=== PATIENT | male | born 1990 | race Caucasian/White ===

== ENCOUNTER 2016-09-02 09:43 | Inpatient (IN) | payer OTHER ==
[~2016-09-02] VITALS: Ht 175.3 cm; Wt 75.7 kg
--- NOTE | ~2016-09-02 | TXPLANREV ---
"PATIENT: JACKI MARSH | | [facility] UNIT #: [id number] | [address] AGE/SEX: 26 M : 89 | [address] | [place] [phone] ADMIT/REG DATE: 09/02/16 | ROOM: [facility] LOC: ADTC | ADTC | Treatment Plan/Staffing Review Date: 09/23/16 Treatment plan was reviewed and determined appropriate as written: Yes Treatment plan was reviewed and the following changes/addition/deletions are necessary: Client was assigned feelings letters to complete on his kids. Client was also assigned a Recovery Maintanence packet. Discharge plans were reviewed and determined appropriate as previously documented: see below Discharge plans were reviewed and determined to be as follows: Client will be going to a 1/2 [address] house or 3/4 house. Other pertinent issues discussed during this staffing review include: None Staff Present: Reyna Martínez Jann D PRIMARY COUNSELOR: Christina Nelson Client Signature Counselor Signature Date Time "
--- NOTE | ~2016-09-02 | CLPRLASSUM ---
PATIENT: JACKI MARSH | | [facility] UNIT #: [id number] | [address] AGE/SEX: 26 M : 89 | [address] | [place] [address] ADMIT/REG DATE: 09/02/16 | ROOM: [facility] LOC: ADTC | ADTC | Client Problem List/Assessment Summary Date: 09/09/16 Problems identified by the client: drug use, upbringing, friends, Problems identified by significant others: drug use Client's Strengths: beti rowe Problem List: Code: T Client needs to become familiar with basics of recovery as he is new to treatment and Twelve Step Program. Code: T Client needs to address criminal attitudes and beliefs which leads to substance abuse and crimes. Code: T Client does not "reach-out to others for help" and instead resumes using drugs. Code: T Client needs to identify relapse warning signs and develop a plan to deal with them as they arise. Code Pop: T: to be addressed during course of treatment O: problem noted, expected to resolve itself with abstinence--specific tx plan not required R: problem noted, will be referred upon discharge PRIMARY COUNSELOR: Christina Nelson
--- NOTE | ~2016-09-02 | RESCARESUM ---
"PATIENT: JACKI MARSH | | [facility] UNIT #: [id number] | [address] AGE/SEX: 26 M : 89 | [address] | [place] [address] ADMIT/REG DATE: 09/02/16 | ROOM: [facility] LOC: ADTC | ADT | Summary of Residential Care Primary [facility]or[facility] Date of Admission: 09/02/16 Date of Discharge: 09/30/16 Referral Source: probation Primary Care Provider Prior to Admission: None Admitting Diagnosis: F15.20 Stimulant Use Disorder, severe; F12.20 Cannabis Use Disorder, severe; F11.20 Opiod Use Disorder, severe; F10.20 Alcohol Use Disorder, mild; F17.20 Tobacco Use Disorder, severe; High risk for blood-borne pathogens due to long-term IV use per Dr. Leonard Rao. Discharge Diagnosis: Same as above Goals Achieved: Client verbalized understanding of the severity of his powerlessness and unmanagability related to his substance use. He practiced identifying and appropriately expressing his feelings. Client completed his Step One, Deny Baby, Shame Faced, and Recovery Maintanence packets. Client began to work on relapse triggers and prevention plan. Continued Obstacles to Sobriety/Relapse Issues: Client's whole family is activly using or dealing. Family Issues Addressed: Client completed Family Education. Y Individual Therapy Y Group Therapy Y Educational Series on Substance Abuse N Parents/Significant Others Attended Family Program N Acute Medical Problems During the Course of Treatment N Transferred to Hospital During the Course of Treatment Y Accepting of Substance Abuse Problem N Non-accepting of Substance Abuse Problem N Required Psychological or Psychiatric Consultation During the Course of Treatment Completed AA Step # 1 During This Level of Care Significant Incidences During Treatment: None Reason For Discharge: Y Completed Residential TX Goals and Ready For Next Level of Care N Left Tx Against Medical Advice/Treatment Goals Not Complete N Completed Residential Tx Goals But Refusing Continuing Care Recommendations N Discharged Due to Noncompliance/Treatment Goals not Completed N Discharged Earlier Than Planned Due to: PATIENT: JACKI MARSH | | [facility] UNIT #: [id number] | [address] AGE/SEX: 26 M : 89 | [address] | [place] [address] ADMIT/REG DATE: 09/02/16 | ROOM: [facility] LOC: ADTC | ADTC | Summary of Residential Care Continuing Care Plan/Recommendations: N Intensive Partial Care Y Sponsor N Partial Care Y AA Meetings/NA Meetings N Outpatient N Co-dependency Services N Therapeutic Community Y [address] House N [address] Way House N Mental Health Therapy N Marriage Counseling N Other Specific Continuing Care Plan: It is recommended that client go directly to the [facility], follow all rules and regulations, seek full-time work, get and call sponsor on a regular basis, attend 3-5 NA/AA meetings per week, and work a strong program of revcovery. PRIMARY COUNSELOR: Christina Nelson"
--- NOTE | ~2016-09-02 | TXPLANREV ---
"PATIENT: JACKI MARSH | | [facility] UNIT #: [id number] | [address] AGE/SEX: 26 M : 89 | [address] | [place] [phone] ADMIT/REG DATE: 09/02/16 | ROOM: [facility] LOC: ADTC | ADTC | Treatment Plan/Staffing Review Date: 09/16/16 Treatment plan was reviewed and determined appropriate as written: Client finished his Step 1 and is to work on his feelings letters. Treatment plan was reviewed and the following changes/addition/deletions are necessary: Client was given Tai Thinkin and Deny Baby to read. Discharge plans were reviewed and determined appropriate as previously documented: see janessa Discharge plans were reviewed and determined to be as follows: Client would like to go back home but it is recommended that he go to a half way house. Clients drug master deputy sheriff court security is in agreement with this. Other pertinent issues discussed during this staffing review include: none Staff Present: Reyna Martínez Lori C PRIMARY COUNSELOR: Christina Nelson Client Signature Counselor Signature Date Time "
--- NOTE | ~2016-09-02 | INDIVTXPL2 ---
"PATIENT: JACKI MARSH | | [facility] UNIT #: [id number] | [address] AGE/SEX: 26 M : 89 | [address] | [place] [address] ADMIT/REG DATE: 09/02/16 | ROOM: [facility] LOC: ADTC | ADTC | Individualized Treatment Plan DATE: 09/09/16 Problem Statement/Issue Identified: Client needs to become familiar with the basics of recovery as he is new to treatment and the Twelve Step Program. Goal: Client will learn how to identify negative consequences of his addcition, attend AA/NA meetings and meet men in recovery. Objectives/Activities to achieve goal: 1. Client is to complete the How to Get Started packet, which will help him take a look at how his addiction has progressed in his life and share with his counselor and selected pages in group. Due Date: 09/18/16 Complete: Incomplete: 2. Client is to complete Step 1, learning how he has compromised his values and standards and share with his counselor and selected pages in group. Due Date: 09/18/16 Complete: Incomplete: 3. Client is to attend AA/NA meetings, ask for and get at least 5 names and numbers of men in recovery so he can begin to build a support system and possible sponsor and share with his counselor. Due Date: Complete: Incomplete: Client Signature Date Counselor Signaure: Date Outcome/Measurement of Progress Towards Goal: Counselor Signature: Date "
--- NOTE | 2016-09-02 11:12 | NUR ---
Tech notes: Client is working on Getting started. Missed meditation over slept.
--- NOTE | 2016-09-02 11:12 | NUR ---
Adrian notes: Client is working on Tai Mortensenin and mtg with edith
--- NOTE | 2016-09-02 13:14 | NUR ---
ADMISSION NOTE Rights/Responsibilities: Copy given and explained to client. Signed and accepted by client. Client oriented to physical lay out of the ADTC unit, given Big Book and admission packet. A Omer was assigned. Edison Client is a 26yr old single male. Referred by probation. Brought to tx by friend from [place], [place] where he lives. DOC, Meth, last used 07/09/16, 2 grams daily. No allergies, No meds. Family participation sister. Was searched no contraband found. Initial paperwork given and guidelines gone over. Doctor was notified.
--- NOTE | 2016-09-02 17:25 | NUR ---
SPIRITUAL EDUCATION 1 HR. We oriented newcomers to spirituality group, and todays activities were putting on presentations from parts of [employer] book.
--- NOTE | 2016-09-02 18:29 | NUR ---
Individual Aliya, 1.0 hours, Client was oriented to how therapy works, how family education works and family participation, releases signed, explained that he cannot use the phone this first weekend but can have visits and gave him visiting hours, explained significant event forms, room checks and reviewed his initial treatment plan.
--- NOTE | 2016-09-02 22:39 | NUR ---
tech note: Client played Pictionary for recreation & attended onsite NA meeting.Client was checked into his room & seen by the DR. Client gave his first intro. SE: coming to treatment.
--- NOTE | 2016-09-02 23:27 | NUR ---
Eduction: 1 Hour. Client attended "Disease Concept" lecture.
--- NOTE | 2016-09-03 05:35 | NUR ---
tech note: Client was motionless in no distress at all bed checks.
--- NOTE | 2016-09-03 05:35 | NUR ---
tech note: Client was motionless in no distress at all bed checks.
--- NOTE | 2016-09-03 12:06 | NUR ---
Group 1.5 Hr Ratio 1:11/Topics today were orientating two new members to group rules and goals. A feelings letter and dealing with anger. Client was orientated to group rules and he shared how he struggles to deal with anger in a positive manner.
--- NOTE | 2016-09-03 15:32 | NUR ---
Education 1 Hour: Client heard a panel of speakers from the local recovery community, who shared their experience, strength and hope.
--- NOTE | 2016-09-03 16:00 | NUR ---
Step education/1 hr/ Focus was on step one. Each person completed a worksheet on this topic and then chose 4 from sheet to share out loud. This person participated.
--- NOTE | 2016-09-03 18:31 | NUR ---
Family contact: Clients roommate was called and a message left so she can be part of family education. Clients sister was also called and a message left to call back so she can be oriented to family education.
--- NOTE | 2016-09-03 18:32 | NUR ---
Trauma Note: Trauma will be addressed during individual therapy sessions.
--- NOTE | 2016-09-03 23:20 | NUR ---
TECH NOTE: Client redecorated the building for [employer], participated in Guided Meditation and attended on-site AA meeting. SE: break fast
--- NOTE | 2016-09-04 04:33 | NUR ---
Bed Note: Clt lay motionless in bed with eyes closed showing no distress at all bed checks.
--- NOTE | 2016-09-04 13:00 | NUR ---
PEER REVIEWS, 1 HR: Clt participated in peer review process and was able to give open and honest feedback to those receiving a review.
--- NOTE | 2016-09-04 15:44 | NUR ---
Tech Note: Client watched the second half of Pleasure [employer] for education and is working on Getting Started.
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
--- NOTE | 2016-09-04 20:17 | NUR ---
Tech note: client watched tv and movies,attended optional offsite AA meeting SE:playing cards
--- NOTE | 2016-09-05 04:23 | NUR ---
Bed note: client was in bed with eyes closed and no distess at all bed checks
--- NOTE | 2016-09-05 16:20 | NUR ---
Tech Note: Client attended N.A.Panel and is working on Getting Started.
--- NOTE | 2016-09-05 20:03 | NUR ---
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 SE: Grilled food for supper.
--- NOTE | 2016-09-06 04:53 | NUR ---
Bed Note : Client had eyes closed and in no distress at all bed checks.
--- NOTE | 2016-09-06 16:04 | NUR ---
tech note: Client working on getting started packets. Client went to [employer]ec[employer], optional walk and took a nap
--- NOTE | 2016-09-06 23:29 | NUR ---
TECH NOTE: Client attended AA panel, participated in community clean and watched tv/movies. 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
--- NOTE | 2016-09-07 04:14 | NUR ---
BED NOTE: Client was in bed, motionless with eyes closed all three bed checks.
--- NOTE | 2016-09-07 10:37 | NUR ---
Tech notes: Client is working on Getting started and Lab today.
--- NOTE | 2016-09-07 11:30 | NUR ---
Experiential Group 1.5 hr/ Clients all participated in family sculpturing by role-playing, feedback, and relating. They also shared what they needed to get help with and a gratitude. Client wants help with accountability and is grateful for recovery.
--- NOTE | 2016-09-07 13:31 | NUR ---
Education note: Client watched video "It can't happen to me"
--- NOTE | 2016-09-07 16:00 | NUR ---
RECOVERY 101 1 HR/ Clients learned about Fundamentals of recovery and tools from AA/NA. They participated by sharing what they hear at meetings that are important for their recovery like: working the steps, how to get and use sponsors, reading C.A.L. literature, service work, HP concept, opening up, slogans, using the Serenity Prayer, attending functions, what is closed and open meetings, etc.
--- NOTE | 2016-09-07 19:06 | NUR ---
Education 1HR: Clt attended lecture given by counselor on "Communication".
--- NOTE | 2016-09-07 22:22 | NUR ---
Tech note: Client participated in group by playing catch phrase. Client attended an onsite NA meeting. SE: NA meeting
--- NOTE | 2016-09-08 05:05 | NUR ---
Bed note : Client was motionless with eyes closed at all bed checks.
--- NOTE | 2016-09-08 16:14 | NUR ---
A.M. 1.5 hr group/ratio 07/25 Group heard a getting started and a step one. Discussion was on not being too sure of yourself that you won't relapse. This client had some feedback. He was also debating with peer on drug court rules as he said it is 18 months and peer said he can get done in 15 but this client did not think this was correct. Had to redirect to get back on topic.
--- NOTE | 2016-09-08 16:29 | NUR ---
Tech Note: Client watched video The Enabler and is working on Step 1.
--- NOTE | 2016-09-08 18:46 | NUR ---
Education: 1 Hour. Client attended presentation given by [facility] AIDS/STDS/HIV. HIV testing was available.
--- NOTE | 2016-09-08 18:46 | NUR ---
Education: 1 Hour. Client attended presentation given by [facility] AIDS/STDS/HIV. HIV testing was available.
--- NOTE | 2016-09-08 20:14 | NUR ---
Relapse Prevention,08/07 1.0, Client attended and participated in relapse prevention education which focused on internal and external triggers.
--- NOTE | 2016-09-08 23:03 | NUR ---
Tech note: Client participated in rec by playing pictionary. Client went to guided meditation and attended an onsite AA meeting. SE: HIV negative
--- NOTE | 2016-09-09 05:29 | NUR ---
tech note: client was motionless in no distress at all bed checks.
--- NOTE | 2016-09-09 09:16 | NUR ---
SPIRITUAL EDUCATION 1 HR. We started a two part education on Forgiveness today and group discussion on hutchison points.
--- NOTE | 2016-09-09 10:15 | NUR ---
Tech Notes: Client is working on BB
--- NOTE | 2016-09-09 12:00 | NUR ---
AM GROUP 10:1/1.5 HR: Client and peers helped to ORIENT A NEW PEER TO GROUP GUIDELINES, GOALS, & OBJECTIVES. Two group members processed from assignments but much of the examples they gave and personal sharing focused on how addiction affects children at any age. This client sat quietly but appeared attentive.
--- NOTE | 2016-09-09 17:59 | NUR ---
Individual Therapy, 1.0, This session focused on review of psychosocial and development of clients problems/needs list and treatment plan.
--- NOTE | 2016-09-09 23:16 | NUR ---
Tech note:Client participated in rec-worked on beaded projects SE: dinner
--- NOTE | 2016-09-09 23:39 | NUR ---
Education: 1 hour lecture on step 2 & 3 given by counselor
--- NOTE | 2016-09-10 04:37 | NUR ---
Bed note: client was in bed with eyes closed and no distress at all bed checks.
--- NOTE | 2016-09-10 11:32 | HP ---
ADMIT: 09/02/2016 RM/LOC: [facility] MR#: [id number] [facility] [address] [place], [place] [address] JACKI MARSH [address] [place] [address] History and Physical SEX: M AGE: 26 : 1990 DATE OF SERVICE: CHIEF COMPLAINT: Drug problem. CLINICAL HISTORY: The patient is a 26-year-old, white male, admitted to the residential care program for treatment of his methamphetamine/stimulant use disorder, severe; cannabis use disorder, severe; opioid use disorder, severe; and alcohol use disorder, mild. The patient comes to treatment through drug court. The patient has been in [facility] from 07/09/2016 through to 09/02/2016 after being arrested for possession of controlled substances. He was arrested and was found to be in possession of tramadol, morphine, and hydrocodone. He opted to go through drug court and comes to treatment as a portion of his drug court agreement. He readily admits that he is a drug addict. He notes his drug of choice at the current time is methamphetamine. He first started using meth 3 years ago at the age of 23 and has been an IV user for the past 3 years typically doing 2 to 3 g of meth per day and using meth on a daily basis. The patient notes that his current 2nd drug of choice. Are the opiates he has been using opiates off and on since his teenage years. He first experimented with them at age 13. Currently, he uses opiates as much as 1 to 4 times a month. He prefers hydrocodone, Percocet, OxyContin, or morphine, he notes if he is taking hydrocodone, he will take up to 100 mg per day; if Percocet, he will take anywhere from 100 to 200 mg per day. He usually either takes these orally or crushes them and snorts them. He notes his third drug of choice is marijuana. He is a daily pot user, and he has been using pot since he was 7 years of age. He notes his use of pot is decreased over the last 3 years since he started using meth. Since he has been using meth, he has little desire for anything other than the opiates. The patient notes he first was introduced to cocaine at the age of 6. He used cocaine regularly from age 6 through 15. His mother was an addict and a dealer, and he was able to get cocaine from her. He notes he moved away from [place] to try to get away from drugs and moved from an area where cocaine was easily obtainable to [place], which is [place]. He notes that since age 15, he has used cocaine on a very limited basis and as noted, now prefers methamphetamine over cocaine. He does note he drinks on a limited basis. He has been using alcohol since age 8, but he prefers drugs over alcohol. With his drugs of choice being currently meth, pot, and the prescription opiates. He also notes that in the past he has abused nonprescription cough syrups such as [id number] Robitussin. The patient notes he did go to treatment once previously about a year ago at [facility]. He left before he completed treatment. He was there in July of 2015. As noted, he did not complete treatment and he relapsed immediately. He comes to treatment at this time as a portion of his drug court agreement. PAST MEDICAL HISTORY: PREVIOUS HOSPITALIZATIONS: None. PREVIOUS OPERATIONS: None. CURRENT MEDICATIONS: None. ADMIT: 09/02/2016 RM/LOC: [facility] MR#: [id number] [address] [address] JACKI MARSH [address] ,[address] [address] History and Physical SEX: M AGE: 26 : 1990 ALLERGIES: None known. MEDICAL ILLNESSES: He denies any chronic medical problems stating despite his lifestyle, his general health has been good. He notes he has not been recently tested for HIV or hepatitis and is at high risk for blood-borne pathogens due to his long-term IV drug use. REVIEW OF SYSTEMS: At this time is negative. He has no significant cardiac, pulmonary, GI, , musculoskeletal, or neurologic problems. Do note that he is a smoker, typically smokes a pack per day. Denies any respiratory complaints. SOCIAL HISTORY: The patient dropped out of high school in the 9th grade. He is currently unemployed. He notes because of his heavy drug use, he has had trouble maintaining any type of long-term employment. Most recently, he has been living in [place]. He shares an apartment with a roommate. He notes his roommate does not use drugs. FAMILY HISTORY: He notes that his parents when he was young. He has 2 older brothers, both of them were also addicts. He notes his mother was a cocaine addict and a drug dealer. She introduced into both cocaine and pot. He notes his father was an alcoholic and a cocaine addict and is currently on hospice care for end-stage throat cancer that is widely metastasized to his lung and brain. He also has some step siblings on his father's side of the family whom he notes of all struggles with alcohol problems as well. He notes a very strong history of drug and alcoholism on both sides of his parents' families. PHYSICAL EXAMINATION: VITAL SIGNS: Temperature is 95.8, pulse 51, respirations 20, blood pressure 150/85, height 5 feet 9 inches, and weight is 165 pounds. GENERAL: The patient is a 26-year-old, white male, who appears his stated age. He is in no acute distress. HEENT: Unremarkable. Ears are clear. Nose and throat noninflamed. Oropharynx is normal. He does have significant periodontal disease and extensive dental caries. NECK: Supple without adenopathy. Thyroid not enlarged. LUNGS: Noted to be clear. HEART: Regular rhythm without murmur. ABDOMEN: Thin, scaphoid, and nontender. No masses. No organomegaly. No hernias. GENITALIA: Normal male. EXTREMITIES: Normal to gross exam. No bony deformities. No clubbing or cyanosis. NEUROLOGICAL: He is intact with no focal deficits. Balance and gait normal. INTEGUMENT: No rashes or worrisome skin lesions. He does have needle tracks in his left antecubital fossa. ADMIT: 09/02/2016 RM/LOC: [facility] MR#: [id number] [id number] [place], [place] [address] JACKI MARSH [address] [place] [address] History and Physical SEX: M AGE: 26 : 1990 MENTAL STATUS EXAMINATION: He is pleasant and cooperative. He shows no evidence of any acute drug withdrawal. His affect is appropriate. He has no delusions, no hallucinations, and no bizarre ideation. He does not have any significant depressive symptoms, appears to be of average intelligence. His memory is intact. Insight is limited. Judgment is guarded. ASSESSMENT AT THE TIME OF ADMISSION: 1. Stimulant/methamphetamine use disorder, severe. 2. Stimulant/cocaine use disorder, severe. 3. Cannabis use disorder, severe. 4. Opioid use disorder, severe. 5. Alcohol use disorder, mild. 6. Tobacco use disorder. 7. High risk for blood-borne pathogens due to long-term IV drug use. PLAN: Plan is to admit the patient to the residential care program with a tentative discharge date of 09/30/2016. Upon completion of treatment, he is unsure of his plans, but a portion of his drug court agreement is to follow through on aftercare recommendations. Would strongly recommend placement at a custodial house. He will need the structure and support of a sober living community to help maintain his long-term sobriety. Leonard Rao MD/ modl JOB #: [id number] CC: Leonard Rao, Attending Physician FAMILY PHYSICIAN, Family Physician
--- NOTE | 2016-09-10 11:46 | NUR ---
Group 1.5hrs 1:10 Two new clients were orientated about group goals and rules. Client shared his Getting Started packet and was given feedback by peers. Client shared how he has stuffed feelings and become emotionless. Client was confronted by a peer about them not telling the truth and client became defensive and tearful. Student- Brooke Sinha
--- NOTE | 2016-09-10 14:19 | NUR ---
Education 1 Hour: Client heard a presentation on, "Marijuana."
--- NOTE | 2016-09-10 14:45 | NUR ---
FAMILY EDUCATION 3 HRS. Client was accompanied by his female friend. They took part in the discussion on the disease concept. Client shared chemical history and the consequences.
--- NOTE | 2016-09-10 14:51 | NUR ---
Tech Note: Client participated in Spiritual Enrichment in the morning and walked in the halls for afternnon exercise. Client participated in Family Group. on
--- NOTE | 2016-09-10 23:04 | NUR ---
Tech Note: Client participated in rec and attended A.A.Meeting.
--- NOTE | 2016-09-10 23:20 | NUR ---
Education Note: Client watched the healthy families video which lasted an hour.
--- NOTE | 2016-09-11 04:38 | NUR ---
Bed note: Client was in bed with eyes closed and no distress at all bed checks
--- NOTE | 2016-09-11 12:50 | NUR ---
AM GRP 1.5 HRS, Ratio 1:11/ Grp today was very confrontational. This clt was confronted on getting angry last night in a meeting. He listened to what others said, but did not get defensive, nor did he try to explain himself. He listened to feedback very well.
--- NOTE | 2016-09-11 15:05 | NUR ---
PEER REVIEWS 1 HR: Clt participated in peer review process and was able to give open and honest feedback to those receiving a review.
--- NOTE | 2016-09-11 16:22 | NUR ---
Tech Note: Client watched a video "How to Sabotage Your Treatment" and is working on Step 1 and Tai Rios.
--- NOTE | 2016-09-11 23:32 | NUR ---
TECH NOTE: Client participated in guideline reading, watched tv/movies SE: peer review.
--- NOTE | 2016-09-12 04:47 | NUR ---
BED NOTE: Client was in bed, motionless with eyes closed all three bed checks.
--- NOTE | 2016-09-12 12:21 | NUR ---
PEER REVIEWS 1 HR: Clt participated in peer review process and was able to give open and honest feedback to those receiving a review.
--- NOTE | 2016-09-12 16:04 | NUR ---
Tech Note: Client went to AA mtg at [address] [place] [address]. Is working on the Big Book.
--- NOTE | 2016-09-12 18:20 | NUR ---
Individual Therapy: 1.0 hours, This session focused on finishing the review of clients biospsychosocial and Step 1 packet. Client shared the events that led to his coming to treatment along with how he was raised as a child.
--- NOTE | 2016-09-12 20:00 | NUR ---
TECH NOTE: Client played Catch Phrase for REC, attended off site AA meeting, watched TV/movies and used phone. SE: all day
--- NOTE | 2016-09-13 04:46 | NUR ---
Bed Note: Clt lay motionless in bed with eyes closed showing no distress at last two bed checks. The first bed check waved to tech.
--- NOTE | 2016-09-13 15:54 | NUR ---
Tech Note: Client participated in Big Book Study. Client stated that he is working on writing Feelings Letters.
--- NOTE | 2016-09-13 22:51 | NUR ---
TECH NOTE: Client attended AA panel, participated in community clean and watched tv/movies. in bed with lights off during shift change SE: nap
--- NOTE | 2016-09-14 04:23 | NUR ---
Bed Note: Clt lay motionless in bed with eyes closed showing no distress at all bed checks.
--- NOTE | 2016-09-14 10:15 | NUR ---
Tech notes: Client is working on Step 1, Fl's, and mtg with edith.
--- NOTE | 2016-09-14 12:41 | NUR ---
Education Note: Client attended educational speaker Kit on Crossaddiction.
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
--- NOTE | 2016-09-14 20:19 | NUR ---
Education: 1 hour lecture on feelings given by counselor
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
--- NOTE | 2016-09-14 23:41 | NUR ---
Tech Note: Client was in Family SE: Sister coming to Family
--- NOTE | 2016-09-15 04:01 | NUR ---
bed note: client was in bed with eyes closed and no distress at all bed checks.
--- NOTE | 2016-09-15 15:14 | NUR ---
Education Note: Client heard a presentation on, "Grief."
--- NOTE | 2016-09-15 15:23 | NUR ---
Tech Note: Client went to his room, stating that he was sick. Client's temperature was 97.8 F at 1135. Client was checked on every two hours and offerred hydration and food.
--- NOTE | 2016-09-15 22:19 | NUR ---
med note: client complained of headache pain level 2 - was at 10 earlier. temp was taken 95.9
--- NOTE | 2016-09-16 00:06 | NUR ---
Education: 1 hour lecture given by Counselor on Step 1
--- NOTE | 2016-09-16 04:15 | NUR ---
Bed Note: Clt lay motionless in bed with eyes closed showing no distress at all bed checks.
--- NOTE | 2016-09-16 10:28 | NUR ---
Tech Notes: Client is working on [employer] and Fl's.
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
--- NOTE | 2016-09-16 13:25 | NUR ---
Education note: Client attended education by [facility]
--- NOTE | 2016-09-16 17:54 | NUR ---
SPIRITUAL EDUCATION 1 HR. Today we discussed ways to quiet the mind and meditation and creativity.
--- NOTE | 2016-09-16 22:53 | NUR ---
tech note: Client played a game for recreation & attended part of the onsite NA meeting. Client's counselor notified him that his step dad is going to start [facility]osp[facility]. SE: Phone call.
--- NOTE | 2016-09-17 02:17 | NUR ---
Education: 1 Hour. Client attended "Unresolved Anger" video & discussion presented by staff.
--- NOTE | 2016-09-17 04:59 | NUR ---
BED NOTE: Client was in bed motionless with eyes closed all three bed checks.
--- NOTE | 2016-09-17 11:17 | NUR ---
Tech Note: Client participated in Spiritual Enrichment and followed programming.
--- NOTE | 2016-09-17 11:30 | NUR ---
AM GRP 1.5 HRS, Ratio 1:12/ Clt shared very little, but when others shared, he often laughs and claps. He was confronted on it at one point, as the conversation was not funny in the least. He had no reason.
--- NOTE | 2016-09-17 13:07 | NUR ---
Education 1 Hour: Client heard a presentation from a member of the recovery community, who shared his experience, strength and hope.
--- NOTE | 2016-09-17 16:38 | NUR ---
STEP EDUCATION/1 HR/ focus was on step 4. Discussed what step 4 was about and then each person answered if there were any things in their family history that bothers them and do they feel they are blocked in any area. This client had good participation and had good examples.
--- NOTE | 2016-09-17 16:47 | NUR ---
STEP EDUCATION/1 HR/ focus was on step 4. Discussed what step 4 was about and then each person answered if there were any things in their family history that bothers them and do they feel they are blocked in any area. This client participated.
--- NOTE | 2016-09-17 20:20 | NUR ---
Education 1HR: Clt watched video by Abel Richmond on Step 5.
--- NOTE | 2016-09-17 22:32 | NUR ---
TECH NOTE: Client played Catch Phrase for REC, participated in Guided Meditation and attended onsite AA meeting. Used phone per counselor note. SE: phone call
--- NOTE | 2016-09-18 04:24 | NUR ---
Bed Note: Clt lay motionless in bed with eyes closed showing no distress at all bed checks.
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
--- NOTE | 2016-09-18 13:00 | NUR ---
PEER REVIEWS 1.25 HRS: Clt participated in peer reviews and took a risk to give open and honest feedback to those receiving a review.
--- NOTE | 2016-09-18 13:08 | NUR ---
Tech Note: Client was seen by Ananya from [facility], regarding a positive test for an STD.
--- NOTE | 2016-09-18 15:39 | NUR ---
Tech Note: Client watched a video "It Can't Happen To Me" and is working on Feelings Letters. Client also had meeting with representatives from the [facility].
--- NOTE | 2016-09-18 22:21 | NUR ---
Tech note : Client watched tv, played games and talked on the phone SE; Phone calls
--- NOTE | 2016-09-19 04:59 | NUR ---
Bed note: Client was in bed with eyes closed and no distress at all bed checks.
--- NOTE | 2016-09-19 15:06 | NUR ---
Tech Note: Client attended N.A.Panel and is working on FL's
--- NOTE | 2016-09-19 20:30 | NUR ---
tech note: client played game for recreation & attended offsite AA meeting. Client was redirected by tech when found laying down in his room @ 1810. Client talked on the phone & watched tv. SE: S/O going to detox.
--- NOTE | 2016-09-20 15:40 | NUR ---
Tech Note: Client is working on [employer] IO's. He attended pentecostal.
--- NOTE | 2016-09-20 22:07 | NUR ---
Tech note: Participated in community clean, attended AA panel with Aston Dejesus SE: Movie
--- NOTE | 2016-09-21 04:57 | NUR ---
Bed note: Client was in bed with eyes closed and no distress at all bed checks.
--- NOTE | 2016-09-21 11:30 | NUR ---
Experiential Group 1.5hr/ Clients all participated in Family Sculpturing by role-playing, relating and giving feedback. This client was involved and attentive.
--- NOTE | 2016-09-21 11:30 | NUR ---
Experiential Group 1.5hr/ Clients all participated in Family Sculpturing by role-playing, relating and giving feedback. This client was involved and attentive.
--- NOTE | 2016-09-21 13:25 | NUR ---
Education note: Client attended education speaker Andra on Tobacco.
--- NOTE | 2016-09-21 14:16 | NUR ---
Tech Note: client is working on Fl's.
--- NOTE | 2016-09-21 18:02 | NUR ---
Education: 1 Hour. Client attended "Forgiveness" lecture presented by staff.
--- NOTE | 2016-09-21 19:45 | NUR ---
RECOVERY 101 1 HR/ Clients all shared what they have struggled with in treatment and what helps them. This client shared about his father in poor health who may soon and it is hard.
--- NOTE | 2016-09-21 23:00 | NUR ---
tech note: client played a game for recreation & attended onsite NA meeting. Client was redirected during the NA meeting for having his feet on the wall. Client was redirected by tech for being in a male peer's room & trying to hide behind the door from the tech. SE: .
--- NOTE | 2016-09-22 04:33 | NUR ---
tech note: client was motinless in no distress at all bed checks.
--- NOTE | 2016-09-22 13:58 | NUR ---
A.M. 1.5 hr res group/ratio 1:8/ Group heard a grief letter, a getting started, and also discussed shame, guilt, and forgiving self. This client related.
--- NOTE | 2016-09-22 15:33 | NUR ---
Tech Note: Client attended programming on Relapse Prevention and is working on the Big Book.
--- NOTE | 2016-09-22 16:24 | NUR ---
Relapse Prevention, 08/10 ration, 1.0 hours, Client attended and participated in relapse prevention education which focused on relapse triggers/issues.
--- NOTE | 2016-09-22 22:18 | NUR ---
TECH NOTE: Client attended Alumni meeting and on-site AA meeting. SE: finding out may go to half way or [address]
--- NOTE | 2016-09-22 22:55 | NUR ---
EDUCATION NOTE: 1HR lecture on Shame given by counselor
--- NOTE | 2016-09-23 04:39 | NUR ---
Bed note: Client was in bed with eyes closed and no distress at all bed checks.
--- NOTE | 2016-09-23 10:00 | NUR ---
IS .75 hr/ Did do EMDR with client, he indicates he has no HP and he does think he wants sobriety/being clean. He joked around initially but did discuss safe-place, he watched video, he had hard time thinking of a place that wasn't associated with trauma as he stated his he has alot of issues with mom and one place by [place] in [place] he recalled his dog so that was grief issue. Did pick a [place] at [place] and then it switched to a hill with long grass by [place] and he was able to get very relaxed. Used Serenity as his word and felt "calm".
--- NOTE | 2016-09-23 10:03 | NUR ---
Tech note: Client is working on BB
--- NOTE | 2016-09-23 11:31 | NUR ---
RES GROUP 1.5 HRS. RATIO 07/28. Topics today were assignments shared, addiction itself, craving, and spirituality. This client was attentive and offered some input but was mostly quiet.
--- NOTE | 2016-09-23 12:44 | NUR ---
Education note: Client attended speaker Jozef Jaramillo
--- NOTE | 2016-09-23 16:05 | NUR ---
SPIRITUAL EDUCATION 1 HR. Topic today was on how addiction is a disease of body mind and spirit and how the Steps fit in treating the SPIRIT. We also talked about ways to spirituality, payoffs, and how spirituality is related to both addiction and recovery.
--- NOTE | 2016-09-23 18:15 | NUR ---
Education: 1 Hour. Client attended "Boundaries" lecture presented by staff.
--- NOTE | 2016-09-23 22:08 | NUR ---
Tech note : Client played pictionary for rec and attended an onsite NA meeting. SE: Chaired meeting and got a sponsor.
--- NOTE | 2016-09-24 05:17 | NUR ---
tech note: client was motionless in no distress at all bed checks.
--- NOTE | 2016-09-24 11:30 | NUR ---
AM GRP 1.5 HRS, Ratio 1:11/ Clt offered good, effective feedback to peers who were sharing thoughts and feelings. He is often big in horseplay, but today he did an great job.
--- NOTE | 2016-09-24 15:43 | NUR ---
Tech Note: Client participated in Spiritual Enrichment in the morning and went for an outdoor walk in the afternoon. Client stated that he is working on reading the Big Book.
--- NOTE | 2016-09-24 15:55 | NUR ---
step education/1 hr/ Focus was on step 6 and looking at character defects. Each person shared some questions and answers and identified what character defects they are ready to let go of and what ones they are not willing to let go of. This client participated.
--- NOTE | 2016-09-24 16:33 | NUR ---
Education 1 Hour: Client heard a presentaion on "Wellness in Recovery."
--- NOTE | 2016-09-24 23:03 | NUR ---
Tech note: Client worked on craft projects for the [employer] for rec and attended AA meeting SE:peer review and meeting
--- NOTE | 2016-09-25 00:08 | NUR ---
Education note: Clients watched a movie on "my attitude' by Amadou Durham.
--- NOTE | 2016-09-25 04:52 | NUR ---
Bed note; client was motionlees, with eyes closed at all bed checks.
--- NOTE | 2016-09-25 11:30 | NUR ---
Group 1.5 hr/ 11:1 Clients all got into discussion about how they found spirituality or struggle with HP concepts and a peer shared GS packet. This client was attentive and quiet.
--- NOTE | 2016-09-25 13:58 | NUR ---
PEER REVIEWS 1.25 HRS: Clt participated in peer reviews and took a risk to give open and honest feedback to those receiving a review.
--- NOTE | 2016-09-25 16:09 | NUR ---
Tech Note: Client went with group for outside walk and watched "Marijuana", by Boris Durham, for education. Clt is working on the Big Book.
--- NOTE | 2016-09-25 23:39 | NUR ---
Tech Note: Client read guidelines with peers. Client watched tv. he was late to guideline reading. SE: community meeting
--- NOTE | 2016-09-26 05:31 | NUR ---
Bed Note: Client was motionless with eyes closed at all bed checks.
--- NOTE | 2016-09-26 13:58 | NUR ---
PEER REVIEWS 1.25 HRS: Clt participated in peer reviews and took a risk to give open and honest feedback to those receiving a review.
--- NOTE | 2016-09-26 15:39 | NUR ---
Tech Note: Client working on the Big Book.
--- NOTE | 2016-09-26 20:28 | NUR ---
Tech Note: Client played a game for rec. They also attended the A.A.Meeting at [facility] and [place]. SE: Peer Review
--- NOTE | 2016-09-27 05:27 | NUR ---
Bed Note: Client was motionless with eyes closed at all bed checks.
--- NOTE | 2016-09-27 15:16 | NUR ---
Tech Note: Client participated in Big Book Study. Client stated that he is working on reading the Big Book. Client attended denominational.
--- NOTE | 2016-09-27 23:29 | NUR ---
Client attended A.A.Panel and helped with community clean. He also attended the CHIEF NURSE ANESTHETIST meeting. SE: RYAN
--- NOTE | 2016-09-28 05:01 | NUR ---
Bed Note: Client was motionless with eyes closed at all bed checks.
--- NOTE | 2016-09-28 10:08 | NUR ---
Tech note: Client is working on BB
--- NOTE | 2016-09-28 11:30 | NUR ---
AM GRP 1.5 HRS, Ratio 1:11/ Clt offered feedback to peers who were processing feelings about something they heard over the weekend. His feedback was right on, stating there's nothing the peer can do as long as she is in tx and it's not her problem, so to focus on herself.
--- NOTE | 2016-09-28 14:36 | NUR ---
Education note: Client attended speaker for education Binh Peters
--- NOTE | 2016-09-28 14:48 | NUR ---
Tech note: Harvey was laying down after lunch.
--- NOTE | 2016-09-28 16:00 | NUR ---
RECOVERY 101 1 HR/ Clients all filled out list of 30 consequences from their use to help look at how each addictive chemical they ever used has caused problems and how minimizing can sabotage treatment. Discussed this and also learned about phases of recovery process from Denial to Acceptance & Surrender.
--- NOTE | 2016-09-28 22:37 | NUR ---
TECH NOTE: Client played Catch Phrase in REC, and attended NA meeting. SE: NA meeting
--- NOTE | 2016-09-28 23:57 | NUR ---
Education: 1 Hour. Client attended "Adult Children" presentation given by staff.
--- NOTE | 2016-09-29 05:21 | NUR ---
BED NOTE: Client was in bed, motionless with eyes closed all three bed checks.
--- NOTE | 2016-09-29 11:36 | NUR ---
A.M. res group/ratio 1:10/ Group assignments shared were step one and feelings letters. This client said he is wanting to get into a sober living place but he also feels mad he has a lease on a house and drug court is making him go to the sober living place.
--- NOTE | 2016-09-29 16:25 | NUR ---
Tech Note: Client attended speaker meeting, presented by [employer], and Relapse Prevention education. Client is currently working on the Big Book.
--- NOTE | 2016-09-29 16:29 | NUR ---
Relapse Prevention; 1.0 hours; Client attended and actively participated in relapse prevention which focused on compulsive behaviors and relapse.
--- NOTE | 2016-09-29 23:20 | NUR ---
Education note: 1 hour lecture given by counselor on "Self Esteem"
--- NOTE | 2016-09-29 23:32 | NUR ---
Tech note: Client worked on projects for the [employer] for rec and attended AA meeting SEF:accepted by [facility]
--- NOTE | 2016-09-30 04:11 | NUR ---
BED NOTE: Client was in bed, motionless with eyes closed all three bed checks.
--- NOTE | 2016-09-30 10:03 | NUR ---
DISCHARGE NOTE Client left tx with staff of [facility] AT THE [facility] and all personal belongings were sent with. Discharge instructions gone over and copy given.
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
--- NOTE | 2016-11-12 10:17 | DS ---
ADMIT: 09/02/2016 RM/LOC: [facility] MR#: [id number] [id number] [place] [address] General Discharge Summary SEX: M AGE: 26 : 1990 ADMISSION DATE: 09/02/2016 DISCHARGE DATE: 09/30/2016 ADMITTING DIAGNOSIS: As per the history and physical. FINAL DIAGNOSES: 1. Stimulant/methamphetamine use disorder, severe. 2. Cannabis use disorder, severe. 3. Opioid use disorder, severe. 4. Alcohol use disorder, mild. 5. Tobacco use disorder, severe. 6. High risk for blood-borne pathogens due to terminal worker IV drug use. COMPLICATIONS: None. OPERATIONS: None. CLINICAL HISTORY: The patient is a 26-year-old white male, admitted to the residential care program for treatment of his methamphetamine use disorder, cannabis use disorder, opioid use disorder and alcohol use disorder. The patient is referred to treatment through [facility]. For details of his pattern of usage and problems associated with his ongoing substance abuse and chemical dependency, please see the clinical history portion of the dictated history and physical. Please also see dictated history and physical for pertinent physical exam findings. Laboratory and x-ray summary from this admission, the patient did have a chronic hepatitis C antibody performed, which was negative. HOSPITAL COURSE: The patient was admitted to the residential care program and assigned to his primary counselor, Christina Nelson. He remained in treatment from 09/02/2016 through 09/30/2016. While in treatment, he participated in individual therapy and group therapy. He was also given the educational series on substance abuse and worked on many of these assignments while at the treatment program. While in treatment, he was accepting of his substance abuse problem and worked well with the staff in both individual and group settings. He attended the family education and family group sessions, but none of his family participated. While in treatment, he had no significant medical issues. He was able to complete step 1 of AA during this level of care. While in treatment, he verbalized a much better understanding of the severity of his chemical dependency. He was able to recognize his powerlessness over alcohol and drugs. He was also able to recognize how his life was unmanageable when he was using. He practiced identifying and appropriately expressing his feelings. He worked on identifying obstacles to his sobriety and was working on his own personal relapse prevention plan. He ADMIT: 09/02/2016 RM/LOC: [facility] MR#: [id number] [address] [address] [place] [address] General Discharge Summary SEX: M AGE: 26 : 1990 ultimately completed his residential treatment goals and was felt to be ready for the next level of care. The patient was dismissed to the [facility]. He was to reside there for 6 to 9 months until dismissed with staff approval and work through their aftercare recovery program. He is to attend 4 to 5 AA or NA meetings per week and maintain regular contact with his sponsor and attempt to work a strong program of recovery while at the [facility]. At discharge, he was dismissed on no medications. CONDITION AT DISCHARGE: Improved. PROGNOSIS: [place] to be good if he follows through on the extended stay at the [facility] as recommended. Leonard Rao MD/ wong JOB #: [id number] CC: Leonard Rao MD, Attending Physician FAMILY PHYSICIAN, Family Physician
== END 2016-09-30 10:04 | disposition home or self-care (01) | DRG 895 ==
LOC: ADTC 10:42
PROVIDERS: ADMIT Family Medicine
PROC: HZ43ZZZ Group Counseling for Substance Abuse Treatment, 12-Step (ICD-10-PCS; principal; 2016-09-02)
PROC: HZ34ZZZ Individual Counseling for Substance Abuse Treatment, Interpersonal (ICD-10-PCS; principal; 2016-09-02)
DX: F15.20 Other stimulant dependence, uncomplicated (principal); F11.20 Opioid dependence, uncomplicated; F12.20 Cannabis dependence, uncomplicated; F10.10 Alcohol abuse, uncomplicated; F17.210 Nicotine dependence, cigarettes, uncomplicated; Z63.72 Alcoholism and drug addiction in family; Z65.3 Problems related to other legal circumstances; Z72.89 Other problems related to lifestyle

== ENCOUNTER 2016-10-29 12:32 | Inpatient (IN) | payer OTHER ==
[~2016-10-29] VITALS: Ht 175.3 cm; Wt 84.4 kg
--- NOTE | ~2016-10-29 | INDIVTXPL2 ---
"PATIENT: JACKI MARSH | | [facility] UNIT #: [id number] | [address] AGE/SEX: 26 M : [birth year] | [address] | [place] [phone] ADMIT/REG DATE: 10/29/16 | [facility] | Individualized Treatment Plan DATE:11/13/16 Problem Statement/Issue Identified:I have control issues Goal:I need to learn how to let go of control Objectives/Activities to achieve goal: 1.I will read letting go of the need to control and share what I learned with my counselor Due Date:11/17/16 Complete: Incomplete: 2.I will share examples of how I handle situations and get feedback on how I did from my counselor. Due Date:11/30/16 Complete: Incomplete: Client Signature Date Counselor Signaure: Date Outcome/Measurement of Progress Towards Goal: Counselor Signature: Date "
--- NOTE | ~2016-10-29 | DISCHSUM ---
"PATIENT: JACKI MARSH | | [facility] UNIT #: [id number] | [address] AGE/SEX: 26 M : [birth year] | [address] | [place] [phone] ADMIT/REG DATE: 10/29/16 | ROOM: [facility] LOC: ADTC | ADTC | Discharge Summary DATE: 11/19/16 DIAGNOSIS:F12.20 cannabis use disorder severe, F15.20 methamphetamine use disorder severe, F14.20 cocaine use disorder severe PRESENTING PROBLEM/CHIEF COMPLAINT: Client relapsed after residential treatment and 3 weeks at the [facility]. He came to residential treatment here at [place] but left AMA before completing. TREATMENT SUMMARY:Client left AMA (against medical advice) on 11/19/16 without talking to any staff. This will be an unsucessful discharge. While he was in res the assignments he finished were: How to get started, NA step one, grief packet over the of his father, letting go of the need to control,and he attended the family education/group alone. Client owns he has an addiction however it appears he struggles with being done with his old life. REASON FOR DISCHARGE:client left AMA PROGNOSIS: poor RECOMMENDATIONS: client needs a residential treatment followed by a 1/2 way house and may have to relocate to find a bed in a 1/2 way house. PRIMARY COUNSELOR: KARENA Dumont,L.A.D.C."
--- NOTE | ~2016-10-29 | TXPLANREV ---
"PATIENT: JACKI MARSH | | [facility] UNIT #: [id number] | [address] AGE/SEX: 26 M : 89 | [address] | [place] [phone] ADMIT/REG DATE: 10/29/16 | ROOM: [facility] LOC: ADTC | ADTC | Treatment Plan/Staffing Review Date: 11/19/16 Treatment plan was reviewed and determined appropriate as written: yes Treatment plan was reviewed and the following changes/addition/deletions are necessary:will talk with client to see what else he needs to work on. Discharge plans were reviewed and determined appropriate as previously documented: yes Discharge plans were reviewed and determined to be as follows: clients discharge date is 11/26/16 and he wants to go to a half-way house although there is no opening at [facility]. Other pertinent issues discussed during this staffing review include:Client told Bari from problem solving court about his girlfriend and Bari said they will staff about this. Staff Present:Reyna Chacon PRIMARY COUNSELOR:KARENA Dumont,L.A.D.C. Client Signature Counselor Signature Date Time "
--- NOTE | ~2016-10-29 | INDIVTXPL2 ---
"PATIENT: JACKI MARSH | | [facility] UNIT #: [id number] | [address] AGE/SEX: 26 M : 89 | [address] | [place] [phone] ADMIT/REG DATE: 10/29/16 | [facility] | Individualized Treatment Plan DATE:11/05/16 Problem Statement/Issue Identified: I have relapsed after my last treatment and need to learn how to not relapse. Goal:I need to learn about recovery and how to not relapse Objectives/Activities to achieve goal: 1.I will complete step one and share with my counselor and in group. Due Date:11/15/16 Complete: Incomplete: 2. I will add to my getting stared and share with my counselor. Due Date:11/07/16 Complete: Incomplete: 3.I will listen to the lectures and take notes and share with my counselor what I have learned. Due Date:on going Complete: Incomplete: Client Signature Date Counselor Signaure: Date Outcome/Measurement of Progress Towards Goal: Counselor Signature: Date "
--- NOTE | ~2016-10-29 | CLPRLASSUM ---
"PATIENT: JACKI MASRH R | | [facility] UNIT #: [id number] | [address] AGE/SEX: 26 M : 89 | [address] | [place] [phone] ADMIT/REG DATE: 10/29/16 | ROOM: [facility] LOC: ADTC | ADTC | Client Problem List/Assessment Summary Date: 11/05/16 Problems identified by the client: I have had problems in my life with finances, relationships, and employment. Problems identified by significant others:no contact Client's Strengths: cares about family and wants recovery Problem List:Code: O Client needs to become familiar with basics of recovery as he/she is new to treatment and Twelve Step Program. Code: O Client has weak boundaries, needs to improve ability to set boundaries and hold boundaries for self to cope with high risk situations and avoid relapse. Code: T Client is experiencing family &/or significant other discord and distancing as a result of past alcohol &/or drug usage. Code: T Client needs to recognize difference between boundaries and controlling while increasing knowledge of the disease and the recovery process. Code: T Client unresolved grief issues contributes to his/her continued drinking and using and needs to address these grief issues to avoid relapse. Code Pop: T: to be addressed during course of treatment O: problem noted, expected to resolve itself with abstinence--specific tx plan not required R: problem noted, will be referred upon discharge PRIMARY COUNSELOR: Hattie Curtis"
--- NOTE | ~2016-10-29 | INDIVTXPL2 ---
"PATIENT: JACKI MARSH R | | [facility] UNIT #: [id number] | [address] AGE/SEX: 26 M : 89 | [address] | [place] [phone] ADMIT/REG DATE: 10/29/16 | ROOM: [facility] LOC: ADTC | ADTC | Individualized Treatment Plan DATE:11/19/16 Problem Statement/Issue Identified:I struggle with stealing,controling and manipulating Goal:I need to learn how to not fall in to this negative behavior. Objectives/Activities to achieve goal: 1.I will complete the con game packet and share what I learned with my counselor. Due Date:11/26/16 Complete: Incomplete: 2.I will discuss situations I go through with my counselor and see if I needed to deal with this in a different way. Due Date: Complete: Incomplete: Client Signature Date Counselor Signaure: Date Outcome/Measurement of Progress Towards Goal: Counselor Signature: Date "
--- NOTE | ~2016-10-29 | TXPLANREV ---
"PATIENT: JACKI MARSH | | [facility] UNIT #: [id number] | [address] AGE/SEX: 26 M : 89 | [address] | [place] [phone] ADMIT/REG DATE: 10/29/16 | ROOM: [facility] LOC: ADTC | ADTC | Treatment Plan/Staffing Review Date: 11/12/16 Treatment plan was reviewed and determined appropriate as written:will add treatment plan Treatment plan was reviewed and the following changes/addition/deletions are necessary: will add plan for grief work and family Discharge plans were reviewed and determined appropriate as previously documented:yes Discharge plans were reviewed and determined to be as follows: client will discharge once he has completed treatment plan goals and the res program. He will need to continue with AA and contact with sponsor. Other pertinent issues discussed during this staffing review include: Client is working on step one and feelings letters Staff Present: Mel Chacon PRIMARY COUNSELOR:KARENA Dumont,L.A.D.C. Client Signature Counselor Signature Date Time "
--- NOTE | ~2016-10-29 | RESCARESUM ---
"PATIENT: JACKI MARSH | | [facility] UNIT #: [id number] | [address] AGE/SEX: 26 M : 89 | [address] | [place] [phone] ADMIT/REG DATE: 10/29/16 | ROOM: [facility] LOC: ADTC | ADTC | Summary of Residential Care Primary Counselor: Karena FRANK,[facility] Date of Admission: 10/29/16 Date of Discharge: 11/19/16 [facility] Prior to Admission: [facility] Admitting Diagnosis: F12.20 cannabis use disorder severe, F15.20 methamphetamine use disorder severe, F14.20 cocaine use disorder severe Discharge Diagnosis: same Goals Achieved: Assignments he completed were:How to get started,NA step one, grief packet over the of his father, letting fo of the need to control, and he attended the family education/group alone. Client knows and owns he is an addict but does not appear ready to do what he needs to do to stay clean. Continued Obstacles to Sobriety/Relapse Issues: not giving up old ways, manipulating others, old friends, problems with authority, and problems following rules Family Issues Addressed: client attended family alone y Individual Therapy y Group Therapy y Educational Series on Substance Abuse n Parents/Significant Others Attended Family Program n Acute Medical Problems During the Course of Treatment n Transferred to Hospital During the Course of Treatment y Accepting of Substance Abuse Problem n Non-accepting of Substance Abuse Problem n Required Psychological or Psychiatric Consultation During the Course of Treatment Completed AA Step #1 During This Level of Care Significant Incidences During Treatment: Client left treatment AMA (against medical advice) so did not complete. Reason For Discharge: Completed Residential TX Goals and Ready For Next Level of Care y Left Tx Against Medical Advice/Treatment Goals Not Complete Completed Residential Tx Goals But Refusing Continuing Care Recommendations Discharged Due to Noncompliance/Treatment Goals not Completed Discharged Earlier Than Planned Due to: Continuing Care Plan/Recommendations: PATIENT: JACKI MARSH | | [facility] UNIT #: [id number] | [address] AGE/SEX: 26 M : 89 | [address] | [place] [address] ADMIT/REG DATE: 10/29/16 | ROOM: [facility] LOC: ADTC | ADTC | Summary of Residential Care Intensive Partial Care y Sponsor Partial Care AA Meetings/NA Meetings Outpatient Co-dependency Services Therapeutic Community y 1/2 Way House 3/4 Way House Mental Health Therapy Marriage Counseling Other Specific Continuing Care Plan:Client did not finish residential treatment. Will have to be asessed at the time if he wants to get back into treatment and see what level of care is appropriate. He also needs a 1/2 [address] house. PRIMARY COUNSELOR:KARENA Dumont,L.A.LorraineC."
--- NOTE | ~2016-10-29 | INDIVTXPL2 ---
"PATIENT: JACKI MARSH | | [facility] UNIT #: [id number] | [address] AGE/SEX: 26 M : 89 | [address] | [place] [phone] ADMIT/REG DATE: 10/29/16 | [facility] | Individualized Treatment Plan DATE:11/12/16 Problem Statement/Issue Identified: I have grief issues due to losing my father Goal:I need to work on my greif issues Objectives/Activities to achieve goal: 1.I will complete the grief packet and share with my counselor. Due Date:11/15/16 Complete: Incomplete: 2. I will talk about my grief and share my feelings with counselor. Due Date: 11/30/16 Complete: Incomplete: Client Signature Date Counselor Signaure: Date Outcome/Measurement of Progress Towards Goal: Counselor Signature: Date "
--- NOTE | 2016-10-29 15:58 | NUR ---
Step education/1 hr/ Focus was on step 11 Sought through prayer and meditation to improve conscious contact with God,praying for his will for us and the power to carry that out. Each person completed a set of questions then we discussed. This person participated.
--- NOTE | 2016-10-29 16:32 | NUR ---
ADMISSION NOTE Client is a 26 y/o single male, referred to treatment by drug court and brought here today from [facility], where the client had been for one week. Client was transported by [facility] staff. Client resides in [place], most recently at a custodial house. Client states NKMA and brings no medications with him today. Client states DOC is meth, last used 9 days ago in an unknown amount. When asked about other drug use client stated, "Everything." Client anticipates family group participation from his sister. Client was searched, no contraband found. Rights/Responsibilities: Copy given and explained to client. Signed and accepted by client. Client oriented to physical lay out of the ADTC unit, given Big Book and admission packet. A Omer was assigned. Pamela
--- NOTE | 2016-10-29 19:12 | NUR ---
Education 1HR: Clt watched half of video "Pleasures Unwoven" with staff present.
--- NOTE | 2016-10-29 23:05 | NUR ---
Tech note: Clt played a game for rec, attended GM and onsite AA mtg. Checked into room, searched and had first intro to grp. SE was arriving tx
--- NOTE | 2016-10-30 04:24 | NUR ---
Bed Note: Clt lay motionless in bed with eyes closed showing no distress at all bed checks.
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
--- NOTE | 2016-10-30 13:00 | NUR ---
PEER REVIEWS 1 HR: Clt participated in peer reviews and took a risk to give open and honest feedback to those receiving a review.
--- NOTE | 2016-10-30 13:03 | NUR ---
Tech Note: Client is working on Feelings Letters.
--- NOTE | 2016-10-30 15:33 | NUR ---
Education Note: Client watched 2nd half of Pleasure Unwoven.
--- NOTE | 2016-10-30 22:13 | NUR ---
med note: client complained of headache. pain level 2. motrin given
--- NOTE | 2016-10-30 22:20 | NUR ---
Tech note : Client watched movies, played games with peers and walked to an offsite AA meeting.
--- NOTE | 2016-10-31 04:08 | NUR ---
Bed note: Client was in bed with eyes closed and no distress at all bed checks.
--- NOTE | 2016-10-31 16:28 | NUR ---
Tech Note: Client attended N.A.Panel and is working on BB.
--- NOTE | 2016-10-31 22:17 | NUR ---
Tech note : Client worked on [employer], [employer] or watched sports for rec this evening. Client walked to an offsite AA meeting.
--- NOTE | 2016-11-01 04:06 | NUR ---
Bed note: Client was in bed with eyes closed with no distress at all bed checks
--- NOTE | 2016-11-01 15:27 | HP ---
ADMIT: 10/29/2016 RM/LOC: [facility] MR#: [id number] [address] [address] HARVEY MARSH [address] [place] [address] History and Physical SEX: M AGE: 26 : 1990 DATE OF SERVICE: CHIEF COMPLAINT: Chemical dependency. HISTORY OF PRESENT ILLNESS: Harvey is a 26-year-old, single, white male, readmitted to residential level treatment at [facility] on 10/29/2016. To make a long story short, he was admitted to treatment, September 02 through September 302016. He completed residential level treatment and was subsequently transferred to the [facility] on September 30. He states he was there for approximately 3-1/2 weeks. His father on October 18, 2016, and on October 20, 2016, he shot up on a mixture methamphetamines and GHB. He was subsequently readmitted to [facility] for detox on October 22 and following detox was transferred to residential level treatment on October 29. His drug and alcohol history is unchanged from his admission on August of 2016 other than his relapse which occurred on October 20. The remainder of his drug and alcohol history is as outlined on his admission H and P from September 02, [address] Rao. PAST MEDICAL HISTORY: Operations none. Illnesses none. MEDICATIONS: None. ALLERGIES: NONE KNOWN. SOCIAL HISTORY: Is that of a 26-year-old, single, white male. He dropped out of school in 9th grade. He is unemployed. He had recently been living at the [facility]. He smokes one pack of cigarettes daily. FAMILY HISTORY: His father recently due to laryngeal cancer complications. His father was an alcoholic and cocaine addict. He also has step siblings who have alcohol problems along with a history of alcohol abuse on his mother's family. REVIEW OF SYSTEMS: Remarkable for odor from his penis with concern for STD exposure. Remainder of review of systems is negative. PHYSICAL EXAMINATION: VITAL SIGNS: He is 5 feet 9 inches with a weight of 84 kg, blood pressure 135/75, with temp 97.4, pulse 93. GENERAL APPEARANCE: Is that of a 26-year-old male who is alert and oriented, in no acute distress. HEENT: Pupils are reactive. TMs normal. Membranes are moist. He has caries around the base of his teeth. NECK: Normal. HEART: Regular without murmur. LUNGS: Clear. ABDOMEN: Soft, benign. GENITOURINARY: Deferred. ADMIT: 10/29/2016 RM/LOC: [facility] MR#: [id number] [address] [address] HARVEY MARSH [address] [place] [address] History and Physical SEX: M AGE: 26 : 1990 RECTAL: Deferred. EXTREMITIES: Reveal no clubbing, cyanosis, edema, tracks, or splinter hemorrhages. NEUROLOGIC: Exam is grossly normal including light touch, strength, and DTRs. LABORATORY DATA: Labs on October 22 from [facility] show a urine, complete metabolic panel, and CBC that were all normal. ASSESSMENT: 1. Stimulant use disorder, severe, with history of IV use. 2. Cannabis use disorder, severe. 3. Opiate abuse disorder, severe. 4. Alcohol use disorder, mild. 5. Tobacco use disorder. 6. Increased risk for human immunodeficiency virus and hepatitis C. 7. Concern for possible STD exposure with discharge and odor. 8. Dental caries. PLAN: Place him on multivitamin and thiamine. Proceed with drug and alcohol abuse dependency treatment and counseling. Obtain a urine for GC and chlamydia culture. Proceed with further evaluation and management based on his course during hospitalization. Please see his hospital record for the details. Ashok South MD/ wong JOB #: [id number] CC: Ashok South, Attending Physician FAMILY PHYSICIAN, Family Physician
--- NOTE | 2016-11-01 16:37 | NUR ---
Tech Note: Client attended baptism in the morning. Client's significant other brought in Dr. Delgado for the clients but did not stay since she is not on the visitors list this week.
--- NOTE | 2016-11-01 21:36 | NUR ---
tech note: client c/o level 2 headache,motrin 400 mg given.
--- NOTE | 2016-11-01 22:41 | NUR ---
tech note: Client attended onsite AA Panel & participated in Community Clean. Client watched tv. SE: hiding easter eggs.
--- NOTE | 2016-11-02 04:30 | NUR ---
tech note: client was motionless in no distress at all bed checks.
--- NOTE | 2016-11-02 10:17 | NUR ---
Tech Notes: Client is working on BB
--- NOTE | 2016-11-02 11:03 | NUR ---
Education Note: Client watched video for education today.
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
--- NOTE | 2016-11-02 16:00 | NUR ---
RECOVERY 101 1 HR/ All clients participated in discussing what are the fundamentals of what they learn at AA/NA meetings that will help them succeed in recovery such as meetings, sponsor, home group, working steps, service work, attending functions, slogans/acronyms as tools, etc. This client was actively sharing.
--- NOTE | 2016-11-02 19:15 | NUR ---
Education: 1 Hour. Client attended "Communications" lecture presented by staff.
--- NOTE | 2016-11-02 23:31 | NUR ---
Client attended N.A.Meeting and went on a walk for rec. SE: Walk
--- NOTE | 2016-11-03 04:21 | NUR ---
Bed note: Client was in bed with eyes closed with no distress at all bed checks
--- NOTE | 2016-11-03 11:30 | NUR ---
GROUP 1.5 HRS. 1:9 Group discussion included issues of discharge planning and fear of leaving. This client shared about his experience at [facility] and indicated it was positive but "did not keep me sober".
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
--- NOTE | 2016-11-03 15:42 | NUR ---
Tech Note: Client participated in light stretching for monring exercise and went for an outdoor walk in the afternoon. Client stated that he is working on reading the Big Book.
--- NOTE | 2016-11-03 17:16 | NUR ---
Relapse Prevention, 08/07, 1.0 hours, Client attended and actively participated in relapse prevention education which focused on high risk situations.
--- NOTE | 2016-11-03 19:22 | NUR ---
Education note: 1 hour watched video "enabler".
--- NOTE | 2016-11-03 19:32 | NUR ---
education note: 1 hour lecture by [facility] on hiv/aid/std. plus clients wwere tested for HIV.
--- NOTE | 2016-11-03 22:08 | NUR ---
Tech note: Client went for a long walk for rec, participated in guided meditation and attended an onsite AA meeting.
--- NOTE | 2016-11-04 05:30 | NUR ---
Bed note : Client was in bed with eyes closed and no movement at all bed checks.
--- NOTE | 2016-11-04 12:34 | NUR ---
AM GROUP 11:/1.5 HR: Client and peers helped to ORIENT A NEW PEER TO GROUP GUIDELINES, GOALS AND OBJECTIVES. Client and peers heard several individuals process assignments and some discussion on the disease concept. This client was attentive as others shared, occasionally offering an observation of his own but with no real significant feedback.
--- NOTE | 2016-11-04 13:27 | NUR ---
Tech Note: Outside speaker Presley Modi spoke at 1300. Client attended and is working on Feelings Letters.
--- NOTE | 2016-11-04 16:43 | NUR ---
Family contact/ Called clients sister and she did not know he was here. Explained family to her and she said she just got back to work from maternity leave and its busy time of year but she will try and come to wednesday night group and next education. We will have a family session on .
--- NOTE | 2016-11-04 17:08 | NUR ---
SPIRITUAL EDUCATION 1 HR. Topics today were clarifying the differences between spirituality and taoist, and playing the spiritual challenge game where they are asked thought provoking open ended questions. It is meant to inspire spiritual line of thought.
--- NOTE | 2016-11-04 22:41 | NUR ---
Tech Note : Client participated in rec by playing catch phrase and attended an onsite NA meeting.
--- NOTE | 2016-11-04 23:40 | NUR ---
Education: 1 Hour. Client attended "Disease Concept" presented by counselor.
--- NOTE | 2016-11-05 05:36 | NUR ---
Bed Note: Client was motionless with eyes closed at all bed checks.
--- NOTE | 2016-11-05 10:42 | NUR ---
Tech Note: Client participated in light stretching for morning exercise. Client stated that he is working on reading the Big Book. Client brought an issue to the community of peers calling him names. He specified two male peers and one female peer. Clients heard that name-calling is inappropriate.
--- NOTE | 2016-11-05 13:50 | NUR ---
PEER REVIEWS 1 HR: Clt participated in peer reviews and took a risk to give open and honest feedback to those receiving a review. The last half hour of group clients talked about loved ones and dying.
--- NOTE | 2016-11-05 15:47 | NUR ---
Education 1 Hour: Client heard from a member of the recovery community who shared his experience, strength and hope.
--- NOTE | 2016-11-05 16:38 | NUR ---
Step Education 1 hr/ Focus was on step 12 "having had a spiritual awakening", each person completed a set of questions on paper and then we discussed. This client participated.
--- NOTE | 2016-11-05 16:45 | NUR ---
IS 1 hr/ Client signed treatment plan. He said he is ready to work on things and is still hoping to only do 2 weeks here and then go to the [facility]. Will see how he does. He wanted to call his girlfriend to ask her to bring more cigarettes and I said no cause he called her 2 days ago. He added his sister to the visitors list. Next apt is 11/10 at 2pm
--- NOTE | 2016-11-05 19:42 | NUR ---
Tech note: client was off the unit for [employer] banquet and speaker event
--- NOTE | 2016-11-06 13:46 | NUR ---
Tech Note: Client with with group on an outdoor walk. Client is working on Step 1, Grieg pkt and Letting Go of the Need to Control.
--- NOTE | 2016-11-06 14:37 | NUR ---
Group 1.5 hr/ 10:1 Clients all heard peers share feelings letters and this client was attentive, heard others talk about parents not being there for them. Client heard counselor say page [phone] on resentments and said he needs help with resentments so will read this.
--- NOTE | 2016-11-06 16:00 | NUR ---
Education Note: Client watched "How to Sabotage Your Treatment"
--- NOTE | 2016-11-06 16:33 | NUR ---
PEER REVIEWS 1.0 HR: Clt participated in peer reviews and took a risk to give open and honest feedback to those receiving a review.
--- NOTE | 2016-11-06 23:03 | NUR ---
TECH NOTE: Client participated in reading guidInteKrinnes, watched tv/movies, attended optional off site AA meeting. SE: group
--- NOTE | 2016-11-07 04:05 | NUR ---
Bed Note: Clt lay motionless in bed with eyes closed showing no distress at all bed checks.
--- NOTE | 2016-11-07 15:14 | NUR ---
Tech Note: Client is working on Step 1, Feelings Letters, Grief packet.
--- NOTE | 2016-11-07 22:55 | NUR ---
TECH NOTE: Client played a game for REC, attended off site AA meeting, watched TV/movies SE: phone
--- NOTE | 2016-11-08 04:48 | NUR ---
Bed Note: Clt lay motionless in bed with eyes closed showing no distress at all bed checks.
--- NOTE | 2016-11-08 15:20 | NUR ---
Tech Note: Client participated in Big Book and stated that he is working on writing Feelings Letters. Client received a visitor.
--- NOTE | 2016-11-08 17:59 | NUR ---
Medication Note: Client took prn ibuprophen for H/A rated at 3.
--- NOTE | 2016-11-08 22:54 | NUR ---
Tech Note: Client attended A.A.Panel and participated in community clean. Client also attended UTILITY MECHANIC SUPERVISOR Meeting. SE:Phone
--- NOTE | 2016-11-09 04:50 | NUR ---
Client was motionless with eyes closed at all bed checks.
--- NOTE | 2016-11-09 10:21 | NUR ---
Tech notes: Client is working on Letting Go and step 1
--- NOTE | 2016-11-09 15:42 | NUR ---
Morning Group, 1.5 hours, 08/08 Clients all participated in 2 family sculptures with role-playing, feedback, and how they related.
--- NOTE | 2016-11-09 16:06 | NUR ---
RECOVERY EDUCATION 1 HR. Todays topic was on denial; good, bad, and levels, life problems being 85 percent of recovery, and distorted thinking patterns that can keep us stuck.
--- NOTE | 2016-11-09 16:30 | NUR ---
Education note: Client watched video "Nightmare on [facility]"
--- NOTE | 2016-11-09 18:42 | NUR ---
Education: 1 Hour. Client attended "Feelings" lecture given by staff.
--- NOTE | 2016-11-09 22:08 | NUR ---
Tech note: Client participated in rec by playing [employer] outside. Client attended an onsite NA meeting.
--- NOTE | 2016-11-10 04:14 | NUR ---
BED NOTE: client was in bed, motionless with eyes closed all three bed checks.
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
--- NOTE | 2016-11-10 16:20 | NUR ---
Relapse Prevention, 08/05 ratio, 1.0 hours, Client attended and actively participated in relapse prevention education which focused on personal reactions to high risk situtations such as personal reactions vs. personal responses, addictive thinking, irresponsible thinking, addictive behavior, irresponsible behavior, instant gratification, and emotional consequences to thoughts and actions.
--- NOTE | 2016-11-10 16:32 | NUR ---
Tech Note: Client listened to speaker Ashok share his experience, strength and hope. Client is working on Step 1.
--- NOTE | 2016-11-10 19:32 | NUR ---
Education : 1 hour lecture given by counselor on feelings.
--- NOTE | 2016-11-10 22:14 | NUR ---
Tech note: Client played catchphrase for rec, participated in guided meditation and attended AA meeting. SE:MANGO womack
--- NOTE | 2016-11-11 04:23 | NUR ---
Bed note: client was in bed with eyes closed and no distress at all bed checks.
--- NOTE | 2016-11-11 10:02 | NUR ---
Tech notes: Client is working on Grief pkt and Step 1
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
--- NOTE | 2016-11-11 13:29 | NUR ---
Education note: Client watched video
--- NOTE | 2016-11-11 16:24 | NUR ---
SPIRITUAL EDUCATION 1 HR. Todays topic was the ADDICTIVE SELF vs. SPIRITUAL SELF. We held discussion on who we are in our addiction vs who we are in recovery and contrasted the two.
--- NOTE | 2016-11-11 18:32 | NUR ---
Education: 1 hour lecture on self esteem given by counselor
--- NOTE | 2016-11-11 22:48 | NUR ---
Client did beads for rec and attended N.A.Meeting. SE: N.A.Meeting
--- NOTE | 2016-11-12 03:59 | NUR ---
Bed note: client was in bed with eyes closed and no distress at all bed checks.
--- NOTE | 2016-11-12 11:57 | NUR ---
Group 1.5 Hr Ratio 1:10/Topics today were a Getting Started packet, a Relapse prevention and a Self worth packet. Client shared how he could relate to what peers were shareing from assignments.
--- NOTE | 2016-11-12 14:01 | NUR ---
IS 1 hr/ Client was asked about napping and at first was hesitant to talk about it but then did. He has been napping since he started treatment. We discussed how this affects his recovery. He said he did not want to come here but has to so he can go back to . He said he has a slight resentment towards here due to not being able to nap. I told him to read page on self centerdness. Also he is to own in community about napping. He signed tx plan on grief.
--- NOTE | 2016-11-12 15:25 | NUR ---
Tech Note: Client participated in Spiritual Enrichment in the morning and went for an outdoor walk after lunch. Client stated that he is working on Step One.
--- NOTE | 2016-11-12 16:15 | NUR ---
Education 1 Hour: Client heard a presentation on cross addiction.
--- NOTE | 2016-11-12 17:00 | NUR ---
FAMILY EDUCATION 3 HRS. Client attended alone and took part in the discussion on the disease concept. Client shared chemical history and the consequences.
--- NOTE | 2016-11-12 23:11 | NUR ---
TECH NOTE: Client did newcommer bookmarks for REC, participated in guided meditation, and attended AA meeting. SE: meeting with counselor
--- NOTE | 2016-11-13 01:21 | NUR ---
1 HR EDUCATION: Client watched a video "Say Yes to Life" by Father Jerald Ghosh
--- NOTE | 2016-11-13 04:41 | NUR ---
Bed Note: CLt lay motionless in bed with eyes closed showing no distress at all bed checks.
--- NOTE | 2016-11-13 13:37 | NUR ---
Morning Group, 07/29, 1.5 hours, Client attended and actively participated in group session. Client offered feedback to his peer but also made the comment "I didn't want to glorify how many women I was with for Step 1 because it was a heck of a lot."
--- NOTE | 2016-11-13 14:54 | NUR ---
PEER REVIEWS 1.5 HRS: Clt participated in peer review process and took a risk to give open and honest feedback.
--- NOTE | 2016-11-13 16:20 | NUR ---
Tech Note: Clt watched "Relapse" for afternoon video. Clt is working on Letting Go of the Need to Control.
--- NOTE | 2016-11-13 22:41 | NUR ---
Tech note: Client watched tv and movies. Client went to an offsite AA meeting, his S/O was there.
--- NOTE | 2016-11-14 05:21 | NUR ---
Bed note : Client was in bed motionless with eyes close at all bed checks.
--- NOTE | 2016-11-14 15:36 | NUR ---
Tech Note: Client attended A.A.Meeting at [facility] and [place] and then helped with the clubhouse cleaning, ate lunch, and listened to a speaker. Client is working on BB
--- NOTE | 2016-11-14 20:43 | NUR ---
tech note: Client played a game for recreation & attended offsite AA meeting.Client watched tv & talked on the phone. SE: Nap.
--- NOTE | 2016-11-15 05:21 | NUR ---
Bed note: Client was in bed motionless with eyes closed at all bed checks.
--- NOTE | 2016-11-15 16:19 | NUR ---
TECH NOTE: Client participated in Chapter 5 of Big Book study, attended nondenominational and watched tv/movies
--- NOTE | 2016-11-15 22:59 | NUR ---
tech note: client attended AA Panel & participated in Community Clean. Client talked on the phone & watched tv. SE: All Day.
--- NOTE | 2016-11-16 04:37 | NUR ---
Bed Note: Clt lay motionless in bed with eyes closed showing no distress at all bed checks.
--- NOTE | 2016-11-16 11:13 | NUR ---
Tech notes: Client is working on Fl's
--- NOTE | 2016-11-16 15:39 | NUR ---
Education note: Client attended speaker for education, Andra on Tobacco
--- NOTE | 2016-11-16 18:13 | NUR ---
Education: 1 hour lecture given by counselor on "forgiveness"
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
--- NOTE | 2016-11-16 22:25 | NUR ---
Tech note: Client attended family group. SE; Talking with friend
--- NOTE | 2016-11-17 04:15 | NUR ---
Bed note: Client was in bed with eyes closed and no distress at all bed checks.
--- NOTE | 2016-11-17 13:12 | NUR ---
Tech Note: Client went to his room c/o vomiting and stomach pain at 0845. Client's temperature was 97.9 F at 0910. Client stated that he was feeling worse and would need to miss programming. Client was advised that he would need to stay in his room until tomorrow,; client stated that he understood. Client wass taken clear liquids at 1000 and 1245. Client stated no further vomiting.
--- NOTE | 2016-11-17 13:35 | NUR ---
Education One Hour: Client heard a presentation on Sexually Transmitted Disease.
--- NOTE | 2016-11-17 22:36 | NUR ---
Tech note: Client was in his room sick, at 10;30 he had some toast and liquides.
--- NOTE | 2016-11-18 04:56 | NUR ---
Bed note: Client was in bed with eyes closed and motionless at all bed checks.
--- NOTE | 2016-11-18 10:37 | NUR ---
Tech notes: Client is working on BB
--- NOTE | 2016-11-18 11:30 | NUR ---
GROUP 1.5 HRS. 1:11 Discussion included the need for appropriate boundaries on the unit and working towards recovery/new behaviors, not addiction/old behaviors. Clients also discussed the effects on addiction as peers had parents that were addicts and then became the parent who addiction effected their own kids. This client sat quiet and did not participate in group.
--- NOTE | 2016-11-18 12:36 | NUR ---
Education note: Client had education by [facility]
--- NOTE | 2016-11-18 16:20 | NUR ---
IS 1 hr/ Client had a list of things he is grateful for. He admits he felt mad when he was told no visitors after he was caught napping since he got here. He will re write feelings letters to kids and roomate to add how he has affected them using feelings words. I asked him if drug court knew he had this feemale friend and he said no. I told him I thought it best he tell them so we called drug court to ask about where they would allow him to go until he got a bed at and he told them then. He said they will staff this but he knows they will not let him be in relationship. He asked me can they just be friends and I told him he needs to ask them. said they do not have a bed now but he is on list. Gave client con game packet. next apt is 11/19 at 2.
--- NOTE | 2016-11-18 20:56 | NUR ---
education: 1 hour video on unresolved anger and group discussion with counselor
--- NOTE | 2016-11-18 22:07 | NUR ---
Tech note: Client worked on beaded project and attended an onsite NA meeting. His S/O was at the meeting. SE; 30 days
--- NOTE | 2016-11-19 04:02 | NUR ---
Bed note: Client was in bed with eyes closed and no distress at all bed checks.
--- NOTE | 2016-11-19 10:21 | NUR ---
Tech Note: Client participated in Spiritual Enrichment. Client stated that he is working on, "Con Game."
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
--- NOTE | 2016-11-19 11:33 | NUR ---
Medication Note: Clilent took prn ibuprophen for h?A rated at 3.
--- NOTE | 2016-11-19 13:38 | NUR ---
Education 1 Hour: Client heard a presentation from a member of the recovery community who shared his experience, strength and hope.
--- NOTE | 2016-11-19 14:41 | NUR ---
IS 1 hr/ Client is willing to go to [facility] until he can get into if he needs to. He also has a person Bari at drug [employer] will do a back ground check to see if he would be ok to stay with. Client is working on the con game packet and feelings letters. He said he broke up with his girlfriend since drug court frowns on this when she came to a meeting. He was not happy to do this but did. Client signed his treatment plan for con game and review. He called [facility] to ask questions. next apt is 02/24 at 8:15 AM.
--- NOTE | 2016-11-19 16:02 | NUR ---
step education 1 hr/ Focus was on step 2, handed out some questions they completed on paper and then opened it up for discussion. This client said he struggles with believing in a higher power.
--- NOTE | 2016-11-19 19:56 | NUR ---
counselor xu/ Christina came to me and said the tech told her client left AMA. Tech said client told him he had talked to drug court supervisor Bari today and has new charges so he wanted to leave. This is not true cause he was in my office when he called Bari and yes he has new charges but they had discussed this before he came here so this was just an exscuse. The tech talked to him and thought he was going to stay but then he was gone. I did call Bari the problem court supervisor and told him.
--- NOTE | 2016-11-19 20:47 | NUR ---
DISCHARGE NOTE Client packed his belongings and left the unit without notifying staff.
--- NOTE | 2016-12-25 07:39 | DS ---
ADMIT: 10/29/2016 RM/LOC: [facility] MR#: [id number] [facility] [address] [place] [id number] [place] [address] General Discharge Summary SEX: M AGE: 26 : 1990 ADMISSION DATE: 10/29/2016 DISCHARGE DATE: 11/19/2016 INDICATION FOR HOSPITALIZATION: Harvey is a 26-year-old, single, white male, readmitted to residential level treatment at [place] on October 29. He had previously been through treatment September 02 through September 30. He was transferred to the [facility]. After approximately 3-1/2 weeks, he shot up on a mixture of methamphetamines and GHB. He was subsequently readmitted to [facility] and detoxed October 22 through the prior to readmission to treatment. Please see his admission H and P for the details regarding history of present illness, past medical history, physical exam, and assessment at time of hospitalization. HOSPITAL COURSE: On admission, he was started on multivitamin and thiamine given his history of alcohol abuse and dependency. Urine for GC and chlamydia culture were obtained per the patient's request. His primary care counselor assigned was Hattie Curtis. During treatment, he underwent individual and group therapy sessions on drug and alcohol abuse and dependency. He completed an educational series on substance abuse. He was accepting of substance abuse problems. Relapse triggers were identified and relapse prevention plan was outlined. No family was involved during the family portion of his treatment program. He completed step 1 of Alcoholics Anonymous. Reason for discharge was leaving against medical advice. Aftercare recommendations include completion of residential level treatment, sponsor assignment, residential house placement with active AA and NA meeting involvement. LAB AND X-RAY DATA DURING HOSPITALIZATION: Include GC and chlamydia testing per urine negative on November 04. MEDICATIONS AT TIME OF DISCHARGE: None as he left AMA. ADMIT: 10/29/2016 RM/LOC: Tamara [facility] MR#: [id number] [address] [id number] [place], [place] [id number] General Discharge Summary SEX: M AGE: 26 : 1990 FINAL DISCHARGE DIAGNOSES: Include: 1. Stimulant use disorder, severe with history of IV use. 2. Cannabis use disorder, severe. 3. Opiate use disorder, severe. 4. Alcohol use disorder, mild. 5. Tobacco use disorder. 6. Increased risk for blood borne pathogens. 7. Concern for sexually transmitted disease exposure with negative testing. 8. Dental caries. PROCEDURES: Include attempts at drug and alcohol abuse dependency treatment and counseling. Please see his hospital record for the details. Ashok South MD/ wong JOB #: [id number] CC: Ashok South MD, Attending Physician FAMILY PHYSICIAN, Family Physician
== END 2016-11-19 19:45 | disposition left against medical advice (07) | DRG 894 ==
LOC: ADTC 13:31
PROVIDERS: ADMIT Family Medicine
PROC: HZ43ZZZ Group Counseling for Substance Abuse Treatment, 12-Step (ICD-10-PCS; principal; 2016-10-29)
PROC: HZ34ZZZ Individual Counseling for Substance Abuse Treatment, Interpersonal (ICD-10-PCS; principal; 2016-10-29)
DX: F15.20 Other stimulant dependence, uncomplicated (principal); F11.20 Opioid dependence, uncomplicated; F14.20 Cocaine dependence, uncomplicated; F12.20 Cannabis dependence, uncomplicated; F10.10 Alcohol abuse, uncomplicated; F17.210 Nicotine dependence, cigarettes, uncomplicated; K02.9 Dental caries, unspecified; Z63.72 Alcoholism and drug addiction in family; Z56.0 Unemployment, unspecified; Z72.89 Other problems related to lifestyle